=== PATIENT | male | born 1940 | race Caucasian/White ===

== ENCOUNTER 2022-05-16 09:54 | Emergency (ER) | payer MEDICARE, SELFPAY ==
[2022-05-16] VITALS (11 sets, daily range): BP systolic 125–139; BP diastolic 65–76; PULSE 56–67; RESP 10–20; O2SAT 71–100
--- NOTE | ~2022-05-16 | CT_ITS ---
EXAMINATION: CT abdomen pelvis w con DATE: 05/16/2022 11:03 INDICATION: Upper abdominal pain. Nausea and vomiting. TECHNIQUE: Computed tomography (CT) of the abdomen and pelvis was performed with 100 mL Omnipaque 350 intravenous contrast. Automated exposure control and iterative reconstruction technique were employe d. The dose-length product was 348.45 mGy-cm. COMPARISON: CT abdomen and pelvis 12/10/2011 FINDINGS: The visualized portions of the lung bases demonstrate mild atelectasis. No pleural effusion . The heart size is normal. No pericardial effusion. Pectus excavatum is noted. There are cysts in th e liver measuring up to 8 mm. Calcifications in the liver and spleen are consistent with old granulom atous disease. There are multiple cystic lesions of the pancreas measuring up to 12 mm. The adrenal g lands are normal. There are cysts in the kidneys measuring up to 3.1 cm on the right. The prostate is moderately enlarged. There are no dilated loops of bowel. The appendix is not visualized. There are no pathologically enlarged lymph nodes. There is no free intraperitoneal fluid. There is severe lower lumbar spondylosis. IMPRESSION: 1. Cystic lesions of the pancreas measuring up to 12 mm. The differential diagnosis includes pseudocy st, intraductal papillary mucinous neoplasm (IPMN), mucinous cystic neoplasm (MCN), serous cystadenom a, and neuroendocrine tumor. Consider abdomen MRI without and with contrast in 2 years, but only if t he patient would be a surgical candidate. Reviewed, dictated and finalized at location A. IMPRESSION: 1. Cystic lesions of the pancreas measuring up to 12 mm. The differential diagn osis includes pseudocyst, intraductal papillary mucinous neoplasm (IPMN), mucin ous cystic neoplasm (MCN), serous cystadenoma, and neuroendocrine tumor. Consid er abdomen MRI without and with contrast in 2 years, but only if the patient wo uld be a surgical candidate.
--- NOTE | ~2022-05-16 | XR_ITS ---
EXAMINATION: XR chest 2V DATE: 05/16/2022 11:08 INDICATION: Upper abdominal pain. Mid sternal pain. TECHNIQUE: Frontal and lateral views of the chest were obtained. COMPARISON: Chest single view 10/14/2005 FINDINGS: There is no pneumonia, pleural effusion, or pneumothorax. The heart size is normal. Pectus excavatum is noted. IMPRESSION: 1. No acute cardiopulmonary disease. Reviewed, dictated and finalized at location A.
--- NOTE | 2022-05-16 10:10 | ECG_ITS ---
Measurements Intervals [place] Rate: 54 P: 64 AK: 213 QRS: -51 QRSD: 109 T: 24 QT: 424 QTc: 405 Interpretive Statements SINUS BRADYCARDIA WITH FIRST DEGREE AV BLOCK LEFT ANTERIOR FASCICULAR BLOCK ABNORMAL ECG BASELINE ARTIFACT- I, III NO PREVIOUS ECG AVAILABLE FOR COMPARISON Electronically Signed On 05-16-2022 11:55:07 CDT by David Ghotra D.O.
--- NOTE | 2022-05-16 10:11 | ED.ABDPAIN ---
HPI - Abdominal Pain General Chief Complaint: Abdominal Pain Stated Complaint: abd pain Time Seen by Provider: 05/16/22 09:54 History of Present Illness HPI narrative: Patient is an 81-year-old male with a history of ulcerative colitis and hypertension here for evaluation of upper abdominal pain. Patient states that he was in his usual state of health this morning when he woke up, but he suddenly began to feel unwell, with severe deep pain in his upper abdomen. He additionally felt sweaty and nauseated, and had 3 episodes of vomiting nonbloody/nonbilious emesis. He states that by the time the paramedics arrived, his pain resolved without intervention, but upon arrival to the ED the pain has returned. He does have a history of colitis and is currently being treated for a flareup with budesonide, he is still having about 5-6 episodes of nonbloody stools per day. No recent antibiotic use. No fevers, chills, chest pain, shortness of breath, leg swelling. PCP is dr. bev harrell. Related Data Allergies Allergy/AdvReac Type Severity Reaction Status Date / Time clindamycin Allergy Mild RASH Unverified 05/16/22 11:55 Penicillins Allergy Unknown Other Unverified 05/16/22 11:55 Sulfa (Sulfonamide Allergy Unknown Other Unverified 05/16/22 11:55 Antibiotics) PCN Allergy Mild RASH Uncoded 05/16/22 11:55 Review of Systems Review of Systems: Gen: Reports diaphoresis. Denies fevers or chills Eyes: Denies eye pain or visual change ENT: Denies congestion Respiratory: Denies shortness of breath or cough CV: Denies chest pain or palpitations GI: Reports upper abdominal pain, diarrhea nausea and vomiting. : denies burning, urgency, frequency or hematuria Musculoskeletal: Denies back pain or muscle pain Neuro: Denies numbness, tingling, weakness or focal weakness Skin: Denies rash Except as documented, all other systems reviewed and negative Exam Narrative: APPEARANCE: Uncomfortable appearing, sweaty Head: Normocephalic and atraumatic. EYES: Slight scleral icterus. PERRLA/EOMI NOSE: No nasal drainage EARS: External ear normal in appearance THROAT: Oropharynx is clear. Mucous membranes are moist. NECK: Supple. No adenopathy, no masses. RESPIRATORY: Airway patent, respirations nonlabored. Clear to auscultation bilaterally, no rales, rhonchi, wheezing. CARDIOVASCULAR: Equal pulses in all 4 extremities. Regular rate and rhythm without murmurs, rubs, or gallops. ABDOMINAL: Tender to palpation in epigastrium. Normoactive bowel sounds. Soft, nondistended. No rebound tenderness or guarding. MUSCULOSKELETAL: Extremities are warm and well-perfused. Moves all extremities well. No edema. NEURO: Normal speech. No focal neurologic deficits. SKIN: Skin is warm and dry. No rashes. PSYCHIATRIC: Normal affect/mood.. Course Consultations Consultation #1: Spoke with patient's primary care doctor, Dr. Bev Harrell, will follow up on CT scan and order abdominal MRI as outpatient. Date: 05/16/22 Time: 12:18 Vital Signs Vital signs: Vital Signs Pulse Rate 58 L 05/16/22 10:04 Respiratory Rate 12 05/16/22 10:04 Blood Pressure 129/76 05/16/22 10:04 Pulse Oximetry 100 05/16/22 10:04 Oxygen Delivery Room Air 05/16/22 10:04 Pulse Rate 63 05/16/22 12:41 Respiratory Rate 15 05/16/22 12:41 Blood Pressure 125/73 05/16/22 12:41 Pulse Oximetry 99 05/16/22 12:41 Oxygen Delivery Room Air 05/16/22 10:04 MDM - Abdominal Pain MDM Narrative Medical decision making narrative: 81-year-old male here for evaluation of upper abdominal pain since this morning with nausea and vomiting. Here he is uncomfortable appearing, was tender to palpation in the epigastrium. Slightly bradycardic to 58, patient states is chronic, vital signs otherwise normal. EKG and troponin nonischemic. 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 CT abdomen pelvis with evidence of a pancr
[2022-05-16] MEDS: SODIUM CHLORIDE 0.9% IV 1,000 ML 999 ML IV CONT (10:23)
[2022-05-16] MEDS: ONDANSETRON INJ 4 MG/2 ML VIAL IV PUSH (10:23)
[2022-05-16] MEDS: MORPHINE SULFATE (*CRX) 4 MG/ML INJ IV PUSH (10:23)
[2022-05-16 10:38] LABS: Basophils Absolute Auto 0.1 K/mm3 (0.0-0.1); Basophils Percent Auto 0.8 % (0.2-1.2); Eosinophils Absolute Auto 0.1 K/mm3 (0-0.3); Eosinophils Percent Auto 1.2 % (0-4.4); Hematocrit 50.3 % (42.0-52.0); Hemoglobin 17.2 g/dL (14.0-18.0); Immature Granulocyte Absolute 0.03 K/mm3 (0.00-0.031); Immature Granulocyte Percent A 0.4 % (0-0.5); Lymphocytes Absolute Auto 1.05 K/mm3 (0.9-3.2); Lymphocytes Percent Auto 12.7 % (18.3-44.2); Mean Corpuscular HGB Conc 34.2 g/dl (32-36); Mean Corpuscular Hemoglobin 32.5 pg (26-34); Mean Corpuscular Volume 94.9 fl (80-100); Mean Platelet Volume 9.8 fl (7.4-10.4); Monocytes Absolute Auto 0.7 K/mm3 (0.1-0.6); Monocytes Percent Auto 8.1 % (2.6-8.5); Neutrophils Absolute Auto 6.3 K/mm3 (1.3-6.7); Neutrophils Percent Auto 76.8 % (45.5-73.1); Platelet Count Result 187 k/mm3 (150-375); Red Cell Distribution Width 13.2 % (11.5-14.5); White Blood Count 8.3 K/mm3 (4.5-10.0)
[2022-05-16 10:47] LABS: Alanine Aminotransferase 23 U/L (6-50); Albumin Level 4.8 g/dL (3.5-5.1); Alkaline Phosphatase 71 U/L (38-126); Anion Gap 13 mmol/L (8-16); Aspartate Amino Transferase 31 U/L (17-59); Bilirubin,Total 1.7 mg/dL (0.2-1.3); Blood Urea Nitrogen 12 mg/dL (9-20); Calcium 9.3 mg/dL (8.4-10.2); Carbon Dioxide 28 mmol/L (22-30); Chloride 99 mmol/L (98-107); Estimated CRCL calculation 59 ml/min; Estimated Glomerular Filt Rate > 60; Glucose 99 mg/dL (65-110); Lactic Acid Reflex 1.4 mmol/L (0.7-2.0); Lipase 212 U/L (23-300); Potassium 4.4 mmol/L (3.4-5.0); Sodium 140 mmol/L (137-145)
[2022-05-16 10:48] LABS: Prothrombin Time 13.2 Seconds (11.1-14.7)
[2022-05-16 10:49] LABS: Partial Thromboplastin Time 29.3 SECONDS (22.3-36.8)
[2022-05-16 10:58] LABS: Troponin I < 0.012 ng/mL (0.000-0.034)
[2022-05-16 12:15] LABS: Appearance Urine Clear (Clear); Bilirubin Urine Negative (Negative); Blood Urine Negative (Negative); Color Urine Yellow (Yellow); Glucose Urine UA Negative (Negative); Ketones Urine Negative (Negative); Leukocyte Esterase Ur Negative LEU/UL (Negative); Nitrate Urine Negative (Negative); Protein Urine Negative (Negative); Specific Grav Ur 1.015 (1.001-1.035); Urobilinogen Urine 0.2 mg/dL (<2.0); pH Urine 7.5 (5.0-9.0)
[2022-05-16 12:18] LABS: Add Urine Microscopic? NO
== END 2022-05-16 12:42 | disposition home or self-care (01) ==
PROVIDERS: Physician Assistant; Emergency Provider Emergency Medicine
DX: K86.2 Cyst of pancreas (principal); I10 Essential (primary) hypertension; K51.90 Ulcerative colitis, unspecified, without complications; I44.0 Atrioventricular block, first degree; R00.1 Bradycardia, unspecified
CPT/HCPCS: 36415; 71046; 74177; 80053; 81003; 83605; 83690; 84484; 85025; 85610; 85730; 93005; 96361; 96374; 96375; 99284; J2270; J2405; J7030; Q9967